=== PATIENT | male | born 1965 | race Caucasian/White ===

== ENCOUNTER 2019-08-14 13:05 | Emergency (ER) | payer OTHER ==
[~2019-08-14] VITALS: Ht 172.7 cm; Wt 79.4 kg
[~2019-08-14 13:05] MED LIST: IBUPROFEN 600600 M1 PO; IBUPROFEN 800800 M1 PO; NORCO 5-325 TA1 EACH PO; PENICILLIN VK500 MG PO
[2019-08-14 15:03] LABS: HEMATOCRIT 39.5 % (42.0-52.0); HEMOGLOBIN 13.3 gm/dL (14.0-18.0); MCH 30.4 pg (26.0-34.0); MCHC 33.6 g/dL (28.0-37.0); MCV 90.5 fL (80.0-100.0); RBC 4.36 mil/uL (4.50-6.00); RDW 12.7 % (10.5-14.5); WBC 11.8 thou/uL (4.0-11.0)
[2019-08-14 15:19] LABS: CALCIUM 8.8 mg/dL (8.5-10.1); CREATININE 0.9 mg/dL (0.7-1.3); POTASSIUM 3.6 mmol/L (3.5-5.1)
[2019-08-14 15:25] LABS: ALBUMIN 3.5 g/dL (3.4-5.0); TOTAL BILIRUBIN 0.5 mg/dL (<0.1-1.0); TOTAL PROTEIN 7.4 g/dL (6.4-8.2)
[2019-08-14] MEDS ORDERED: KEFLEX500 M1 PO (15:39)
[2019-08-14] MEDS ORDERED: BACTRIM DS TAB1 EACH PO (15:39)
[2019-08-14] MEDS ORDERED: NORCO 5-325 TA1 EAC1 PO (15:39)
[2019-08-14 16:35] VITALS: BP 105/67
== END 2019-08-14 16:35 | disposition left against medical advice (07) ==
LOC: ER 13:05
PROVIDERS: Physician Assistant
DX: S81.031A Puncture wound without foreign body, right knee, initial encounter (principal); L03.115 Cellulitis of right lower limb; Z23 Encounter for immunization; M54.5 Low back pain; R00.0 Tachycardia, unspecified; F17.210 Nicotine dependence, cigarettes, uncomplicated; W22.8XXA Striking against or struck by other objects, initial encounter; Y93.89 Activity, other specified; Y92.89 Other specified places as the place of occurrence of the external cause; Y99.8 Other external cause status